=== PATIENT | female | born 1945 | race Caucasian/White ===

== ENCOUNTER → 2016-12-23 09:31 | Outpatient (CLI) | payer MEDICARE, OTHER | END | disposition home or self-care (01) | LOC: D.CT 09:31 | DX: J18.9 Pneumonia, unspecified organism (principal); R05 Cough ==

== ENCOUNTER → 2017-04-07 08:44 | Outpatient (CLI) | payer MEDICARE, OTHER ==
[2017-04-07 10:11] LABS: BASOPHILS 0.3 % (0-2); EOSINOPHILS 0.3 % (0-7); HEMATOCRIT 42.2 % (36.0-48.0); IMMATURE GRANULOCYTES 0.2 % (0-5); LYMPHOCYTES 16.8 % (15-50); MCH 34.7 pg (26.0-34.0); MCHC 33.2 g/dL (31.0-37.0); MCV 104.5 fL (80.0-100.0); MEAN PLATELET VOLUME 10.3 fL (7.4-10.4); MONOCYTES 6.7 % (2-11); NEUTROPHILS 75.7 % (40-80); PLATELET COUNT 190 10x3/uL (130-400); RBC 4.04 10x6/uL (4.00-5.40); RDW 13.6 % (11.5-14.5); WBC 8.7 10x3/uL (4.8-10.8)
[2017-04-07 10:38] LABS: ALBUMIN 4.2 g/dL (3.4-5.0); ANION GAP 13.6 mmol/L (8-16); BILIRUBIN - TOTAL 0.75 mg/dL (0.2-1.3); CARBON DIOXIDE 29.9 mmol/L (21.0-32.0); CREATININE - SERUM 0.9 mg/dL (0.6-1.3); POTASSIUM - SERUM 4.5 mmol/L (3.5-5.1); PROTEIN - SERUM 6.9 g/dL (6.4-8.2)
[2017-04-07 10:41] LABS: APPEARANCE HAZY (CLEAR); BACTERIA MODERATE /hpf (NONE SEEN); BILIRUBIN NEGATIVE (NEGATIVE); COLOR YELLOW (YELLOW); EPITHELIAL CELLS 0-5 /hpf (0-5); GLUCOSE NEGATIVE (NEGATIVE); KETONE NEGATIVE (NEGATIVE); LEUKOCYTE ESTERASE 2+ (NEGATIVE); MUCUS <1+ /lpf (NONE SEEN); NITRITE NEGATIVE (NEGATIVE); PROTEIN NEGATIVE (NEGATIVE); SPECIFIC GRAVITY 1.005 (1.005-1.020); UROBILINOGEN NORMAL (NORMAL)
[2017-04-09 22:06] LABS: CYCLIC CITRULL PEPTIDE IGG/IGA 3 units (0-19)
[2017-04-10 10:10] LABS: ANA REFLEX - DIRECT Negative (Negative)
== END | disposition home or self-care (01) ==
LOC: D.RT 08:44
PROVIDERS: Internal Medicine Pulmonary Disease
DX: J84.112 Idiopathic pulmonary fibrosis (principal)

== ENCOUNTER → 2017-04-20 09:04 | Outpatient (CLI) | payer MEDICARE, OTHER ==
[~2017-04-20] VITALS: Ht 157.5 cm; Wt 65.9 kg
[~2017-04-20 09:04] MED LIST: BREO ELLIPTA 11 EACH INH; DIOVAN160 MG PO; LOZOL 2.5 MG T2.5 MG PO; SINGULAIR10 MG PO; TENORMIN50 MG PO; ZOCOR40 MG PO
[2017-04-20 09:44] VITALS: BP 160/77; Ht 157.5 cm; Wt 65.9 kg
[2017-04-20 09:53] LABS: BASOPHILS 0.2 % (0-2); EOSINOPHILS 0.3 % (0-7); HEMATOCRIT 43.6 % (36.0-48.0); HEMOGLOBIN 14.3 g/dL (12-16); IMMATURE GRANULOCYTES 0.2 % (0-5); LYMPHOCYTES 8.5 % (15-50); MCH 34.5 pg (26.0-34.0); MCHC 32.8 g/dL (31.0-37.0); MCV 105.3 fL (80.0-100.0); MEAN PLATELET VOLUME 10.9 fL (7.4-10.4); MONOCYTES 7.9 % (2-11); NEUTROPHILS 82.9 % (40-80); PLATELET COUNT 180 10x3/uL (130-400); RBC 4.14 10x6/uL (4.00-5.40); RDW 13.5 % (11.5-14.5); WBC 9.1 10x3/uL (4.8-10.8)
[2017-04-20 10:25] LABS: APTT 25.1 SECONDS (22.8-39.4); INR 0.94 (0.85-1.17); PROTIME 12.4 SECONDS (11.6-15.0)
--- NOTE | 2017-04-20 12:32 | NUR ---
1210 VITAL SIGNED RECORDED PER ORDER ON FREQUENT VITALS SHEET IN CHART.
--- NOTE | 2017-04-20 14:13 | NUR ---
1400 DISCHARGE INSTRUCTIONS COMPLETE. NO QUESTIONS OR CONCERNS AT THIS TIME. XRAY DONE. ESCORTED OUT BY ALBERT CHOI.
[2017-04-20 16:20] LABS: LYMPH - BF 20 %; MACROPHAGES BF 3 %; MESOTHELIALS BF 53 %; NEUT - BF 24 %
[2017-04-21 16:14] LABS: ACID FAST SMEAR Negative (()); AFB SPECIMEN PROCESSING Concentration (())
[2017-04-23 11:08] LABS: FUNGUS STAIN Final report (())
== END | disposition home or self-care (01) ==
LOC: D.OPS 09:04
PROVIDERS: Internal Medicine Pulmonary Disease
DX: J84.112 Idiopathic pulmonary fibrosis (principal); J45.909 Unspecified asthma, uncomplicated; R06.09 Other forms of dyspnea; Z87.01 Personal history of pneumonia (recurrent); I51.7 Cardiomegaly; K76.0 Fatty (change of) liver, not elsewhere classified; J30.9 Allergic rhinitis, unspecified; Z01.812 Encounter for preprocedural laboratory examination

== ENCOUNTER → 2017-09-06 07:35 | Outpatient (CLI) | payer MEDICARE, OTHER ==
[2017-04-20 09:44] VITALS: BMI 26.6
[2017-09-06 08:17] LABS: BILIRUBIN - DIRECT 0.18 mg/dL (0.00-0.30); BILIRUBIN - INDIRECT 0.49 mg/dL (0.00-1.00); BILIRUBIN - TOTAL 0.67 mg/dL (0.2-1.3)
== END | disposition home or self-care (01) ==
LOC: D.LAB 07:35 → D.RAD 08:30
PROVIDERS: Internal Medicine Pulmonary Disease
DX: J84.112 Idiopathic pulmonary fibrosis (principal)

== ENCOUNTER 2017-10-24 07:22 | Emergency (ER) | payer MEDICARE, OTHER ==
[2017-04-20 09:44] VITALS: BMI 26.6
[2017-10-24 08:27] LABS: HEMATOCRIT 37.2 % (36.0-48.0); HEMOGLOBIN 12.8 g/dL (12-16); LYMPHOCYTES 4.5 % (15-50); MCH 34.3 pg (26.0-34.0); MCHC 34.4 g/dL (31.0-37.0); MCV 99.7 fL (80.0-100.0); MEAN PLATELET VOLUME 9.5 fL (7.4-10.4); NEUTROPHILS 90.2 % (40-80); PLATELET COUNT 201 10x3/uL (130-400); RBC 3.73 10x6/uL (4.00-5.40); RDW 12.2 % (11.5-14.5); WBC 13.9 10x3/uL (4.8-10.8)
[2017-10-24 09:30] LABS: ALKALINE PHOSPHATASE 98 U/L (46-116); ALT (SGPT) 98 U/L (10-68); BILIRUBIN - TOTAL 1.25 mg/dL (0.2-1.3); CALC OSMOLALITY 273 mosm/kg (275-300); CALCIUM 9.1 mg/dL (8.5-10.1); CHLORIDE - SERUM 97 mmol/L (98-107); CREATININE - SERUM 1.5 mg/dL (0.6-1.3); GLUCOSE 162 mg/dL (74-106); LIPASE 109 U/L (73-393); POTASSIUM - SERUM 3.7 mmol/L (3.5-5.1); PRO BNP 81 pg/mL (0-125); SODIUM 134 mmol/L (136-145); TROPONIN-I < 0.017 ng/mL (0.000-0.060); UREA NITROGEN 19 mg/dL (7-18); eGFR NON AFRICAN AMERICAN 36 mL/min (90-120)
== END 2017-10-24 09:51 | disposition home or self-care (01) ==
LOC: D.ER 07:22
PROVIDERS: Family Medicine
DX: M62.830 Muscle spasm of back (principal); I10 Essential (primary) hypertension

== ENCOUNTER → 2018-06-12 09:19 | Outpatient (CLI) | payer MEDICARE, OTHER ==
[2017-04-20 09:44] VITALS: BMI 26.6
[2018-06-13 14:23] LABS: HEPATITIS C ANTIBODY <0.1 (0.0-0.9)
== END | disposition home or self-care (01) ==
LOC: D.RT 09:19
PROVIDERS: Internal Medicine Pulmonary Disease
DX: J84.112 Idiopathic pulmonary fibrosis (principal); I51.7 Cardiomegaly

== ENCOUNTER → 2018-10-23 11:03 | Outpatient (CLI) | payer MEDICARE, OTHER ==
[2017-04-20 09:44] VITALS: BMI 26.6
[2018-10-23 12:00] LABS: ALBUMIN 3.9 g/dL (3.4-5.0); BILIRUBIN - DIRECT 0.18 mg/dL (0.00-0.30); BILIRUBIN - INDIRECT 0.48 mg/dL (0.00-1.00); BILIRUBIN - TOTAL 0.66 mg/dL (0.2-1.3); PROTEIN - SERUM 7.2 g/dL (6.4-8.2)
== END | disposition home or self-care (01) ==
LOC: D.LAB 10:15
PROVIDERS: Internal Medicine Pulmonary Disease
DX: J84.112 Idiopathic pulmonary fibrosis (principal)

== ENCOUNTER → 2019-07-02 09:48 | Outpatient (CLI) | payer MEDICARE, OTHER ==
[2017-04-20 09:44] VITALS: BMI 26.6
[~2019-07-02 09:48] MED LIST changes: +HYDROCODONE-A1 UDTA2 PO; +OFEV; +PREDNISONE20 MG PO; +TOPROL XL25 MG PO; +ZOVIRAX800 MG PO
== END | disposition home or self-care (01) ==
LOC: D.US 09:48
PROVIDERS: ATTEND Family Medicine
DX: R10.11 Right upper quadrant pain (principal)

== ENCOUNTER 2019-07-09 06:09 | Emergency (ER) | payer MEDICARE, OTHER ==
[~2019-07-09] VITALS: Ht 157.5 cm; Wt 61.4 kg
[~2019-07-09 06:09] MED LIST changes: -HYDROCODONE-A1 UDTA2 PO; -OFEV; -PREDNISONE20 MG PO; -TOPROL XL25 MG PO; -ZOVIRAX800 MG PO
[2019-07-09 06:27] VITALS: Ht 157.5 cm; Wt 61.4 kg
[2019-07-09] MEDS ORDERED: TOPROL XL25 MG PO (06:31)
[2019-07-09] MEDS ORDERED: OFEV (06:31)
[2019-07-09] MEDS ORDERED: ZOVIRAX800 MG PO (07:14)
[2019-07-09] MEDS ORDERED: PREDNISONE20 MG PO (07:14)
[2019-07-09] MEDS ORDERED: HYDROCODONE-A1 UDTA2 PO (07:14)
[2019-07-09 07:37] VITALS: BP 133/56
== END 2019-07-09 07:37 | disposition home or self-care (01) ==
LOC: D.ER 06:09
DX: M25.552 Pain in left hip (principal); M25.551 Pain in right hip; M79.662 Pain in left lower leg; M79.661 Pain in right lower leg; E78.5 Hyperlipidemia, unspecified; I10 Essential (primary) hypertension; B02.9 Zoster without complications

== ENCOUNTER → 2019-07-16 09:13 | Outpatient (CLI) | payer MEDICARE, OTHER ==
[2019-07-09 06:27] VITALS: BMI 24.7
[~2019-07-16 09:13] MED LIST changes: +HYDROCODONE-A1 UDTA2 PO; +OFEV; +PREDNISONE20 MG PO; +TOPROL XL25 MG PO; +ZOVIRAX800 MG PO
== END | disposition home or self-care (01) ==
LOC: D.RT 04-17 13:00 → D.CT 04-17 14:00 → D.RT 05-10 13:30 → D.CT 05-10 14:30 → D.NM 08:00 → D.RT 09:13 → D.NM 10:00 → D.RT 10:00
PROVIDERS: ATTEND Internal Medicine Pulmonary Disease
DX: R10.11 Right upper quadrant pain (principal); J84.112 Idiopathic pulmonary fibrosis

== ENCOUNTER → 2020-05-04 10:46 | Outpatient (CLI) | payer MEDICARE, OTHER ==
[2019-07-09 06:27] VITALS: BMI 24.7
[2020-05-04 12:01] LABS: BILIRUBIN - DIRECT 0.17 mg/dL (0.00-0.30); BILIRUBIN - INDIRECT 0.44 mg/dL (0.00-1.00); BILIRUBIN - TOTAL 0.61 mg/dL (0.2-1.3); PROTEIN - SERUM 6.6 g/dL (6.4-8.2)
== END | disposition home or self-care (01) ==
LOC: D.CT 10:46
PROVIDERS: ATTEND Internal Medicine Pulmonary Disease
DX: J84.112 Idiopathic pulmonary fibrosis (principal)

== ENCOUNTER → 2020-12-16 08:29 | Outpatient (CLI) | payer MEDICARE ==
[2019-07-09 06:27] VITALS: BMI 24.7
== END | disposition home or self-care (01) ==
LOC: D.LAB 08:29
PROVIDERS: ATTEND Internal Medicine Pulmonary Disease
DX: Z11.52 Encounter for screening for COVID-19 (principal)

== ENCOUNTER → 2020-12-21 09:43 | Outpatient (CLI) | payer MEDICARE ==
[2019-07-09 06:27] VITALS: BMI 24.7
[2020-12-21 11:26] LABS: ALBUMIN 3.9 g/dL (3.4-5.0); BILIRUBIN - DIRECT 0.12 mg/dL (0.00-0.30); BILIRUBIN - INDIRECT 0.42 mg/dL (0.00-1.00); BILIRUBIN - TOTAL 0.54 mg/dL (0.2-1.3); PROTEIN - SERUM 6.9 g/dL (6.4-8.2)
== END | disposition home or self-care (01) ==
LOC: D.RT 09:43
PROVIDERS: ATTEND Internal Medicine Pulmonary Disease
DX: J84.112 Idiopathic pulmonary fibrosis (principal); J44.9 Chronic obstructive pulmonary disease, unspecified